=== PATIENT | male | born 1955 | race Caucasian/White ===

== ENCOUNTER 2017-02-16 15:19 | Emergency (ER) | payer BC ==
[2017-02-16] MEDS ORDERED: IBUPROFEN 800 MG TABLET PO STA (17:57)
[2017-02-16 18:07] LABS: BILIRUBIN,URINE NEGATIVE (NEGATIVE); CLARITY,URINE CLEAR (CLEAR); GLUCOSE, URINE (UA) NEGATIVE (NEGATIVE); KETONES,URINE (UA) 15 mg/dL (NEGATIVE); LEUKOCYTE ESTERASE, URINE NEGATIVE (NEGATIVE); NITRITE,URINE NEGATIVE (NEGATIVE); OCCULT BLOOD,URINE NEGATIVE (NEGATIVE); PROTEIN,URINE NEGATIVE (NEGATIVE); UROBILINOGEN,URINE 0.2 (NORMAL) E.U./dL (NORMAL)
[2017-02-16 18:21] LABS: BASOPHILS % (AUTO) 0.7 %; EOSINOPHILS # (AUTO) 0.1 10^3/uL (0.0-0.7); EOSINOPHILS % (AUTO) 1.3 %; HGB - HEMOGLOBIN 14.8 g/dL (14.0-18.0); LYMPHOCYTES # (AUTO) 0.8 10^3/uL (1.5-3.5); LYMPHOCYTES % (AUTO) 12.9 %; MEAN CORPUSCULAR HEMOGLOBIN 33.1 pg (27.0-31.0); MEAN CORPUSCULAR HGB CONC 34.4 g/dL (32.0-36.0); MEAN CORPUSCULAR VOLUME 96.1 fL (80.0-94.0); MEAN PLATELET VOLUME 8.1 fL (7.4-11.4); MONOCYTES # (AUTO) 0.7 10^3/uL (0.0-1.0); MONOCYTES % (AUTO) 12.2 %; NEUTROPHILS # (AUTO) 4.3 10^3/uL (1.5-6.6); NEUTROPHILS % (AUTO) 72.9 %; PLT - PLATELET COUNT 197 10^3/uL (130-450); RED BLOOD COUNT 4.47 10^6/uL (4.70-6.10); RED CELL DISTRIBUTION WIDTH 12.6 % (12.0-15.0); WHITE BLOOD COUNT 5.8 x10^3/uL (4.8-10.8)
--- NOTE | 2017-02-16 19:29 | ED Physician Documentation ---
History of Present Illness - Stated complaint Stated Complaint: FEVER/CHILLS/ABD CRAMPING - Chief complaint Chief Complaint: Fever - History obtained from History obtained from: Patient, Family (spouse) - History of Present Illness Timing: Today - Additonal information Additional information: The patient is a 61-year-old male who reports having an episode of shaking chills and muscular cramps this morning about 5 hours prior to arrival. He has felt fatigued since yesterday, with mild cough and congestion. He denies headache, sore throat, chest pain, abdominal pain, nausea, vomiting, or dysuria. When experiencing the symptoms this morning he noticed he was breathing heavily, "like panic breathing," and noticed spasms in his hands. He reports history of similar symptoms in the past when he had a bladder infection about 2 years ago. He has a history of chronic prostatitis. Review of Systems Constitutional: reports: Fever, Chills, Fatigue Eyes: denies: Irritation Ears: denies: Tinnitus/ringing Nose: reports: Congestion Throat: denies: Sore throat Cardiac: denies: Chest pain / pressure, Palpitations Respiratory: reports: Cough. denies: Dyspnea GI: denies: Abdominal Pain, Nausea, Vomiting : denies: Dysuria Skin: denies: Rash Musculoskeletal: denies: Back pain, Extremity swelling Neurologic: denies: Focal weakness, Numbness, Headache PD PAST MEDICAL HISTORY - Past Medical History Past Medical History: Yes Cardiovascular: None Respiratory: None Neuro: None Endocrine/Autoimmune: None GI: None : Other (Chronic prostatitis.) HEENT: None Psych: None Musculoskeletal: None Derm: None - Past Surgical History Past Surgical History: Yes - Allergies Allergies/Adverse Reactions: Allergies Allergy/AdvReac Type Severity Reaction Status Date / Time [place] And Derivatives Allergy Mild Hives Verified 02/16/17 18:27 - Social History Does the pt smoke?: No Smoking Status: Never smoker Does the pt drink ETOH?: Yes ETOH Use: Beer Does the pt have substance abuse?: No - Immunizations Immunizations are current?: Yes PD ED PE NORMAL - Vitals Vital signs reviewed: Yes (Hypertensive.) - General General: Alert and oriented X 3, Well developed/nourished - HEENT HEENT: Atraumatic, EOMI, Ears normal, Moist mucous membranes, Pharynx benign - Neck Neck: Supple, no meningeal sign, No adenopathy, No JVD - Cardiac Cardiac: RRR, No murmur - Respiratory Respiratory: No respiratory distress, Clear bilaterally - Abdomen Abdomen: Soft, Non tender, No organomegaly - Back Back: No CVA TTP, No spinal TTP - Derm Derm: No rash - Extremities Extremities: No tenderness to palpate, No edema, No calf tenderness / cord - Neuro Neuro: Alert and oriented X 3, No motor deficit, No sensory deficit Results - Vitals Vitals: Oxygen O2 Source Room air - Labs Labs: Laboratory Tests 02/16/17 02/16/17 02/16/17 15:37 17:20 18:15 WBC 5.8 RBC 4.47 L Hgb 14.8 Hct 43.0 MCV 96.1 H MCH 33.1 H MCHC 34.4 RDW 12.6 Plt Count 197 MPV 8.1 Neut # 4.3 Lymph # 0.8 L [place] # 0.7 Eos # 0.1 Baso # 0.0 Absolute Nucleated RBC 0.01 Nucleated RBC % 0.2 ESR C-Reactive Protein Urine Color LIGHT YELLOW Urine Clarity CLEAR Urine pH 6.0 Ur Specific [place] <=1.005 Urine Protein NEGATIVE Urine Glucose (UA) NEGATIVE Urine Ketones 15 H Urine Occult Blood NEGATIVE Urine Nitrite NEGATIVE Urine Bilirubin NEGATIVE Urine Urobilinogen 0.2 (NORMAL) Ur Leukocyte Esterase NEGATIVE Ur Microscopic Review NOT INDICATED Urine Culture Comments NOT INDICATED Influenza A (Rapid) Negative Influenza B (Rapid) Negative Influenza Types A,B Ag - 02/16/17 02/16/17 18:15 18:15 WBC RBC Hgb Hct MCV MCH MCHC RDW Plt Count MPV Neut # Lymph # [place] # Eos # Baso # Absolute Nucleated RBC Nucleated RBC % ESR 5 C-Reactive Protein < 1.0 Urine Color Urine Clarity Urine pH Ur Specific [place] Urine Protein Urine Glucose (UA) Urine Ketones Urine Occult Blood Urine Nitrite Urine Bilirubin Urine Urobilinogen Ur Leukocyte Esterase Ur Microscopic Review Urine Culture Comments Influenza A (Rapid) Influenza B (Rapid) Influenza Types A,B Ag PD MEDICAL DECISION MAKING - ED course Complexity details: reviewed results, re-evaluated patient, considered differential, d/w patient, d/w family ED course: The patient's presentation is most consistent with acute viral syndrome. His description of intense shivering raises suspicion for bacteremia. CBC is normal with a white count of 5.8. Influenza swab is negative. Urinalysis is negative. His presentation and exam did not suggest pneumonia. C-reactive protein and sedimentation rate are both normal, making endocarditis unlikely. I discussed with the patient and his the results of the workup symptomatic treatment and outpatient follow-up, as well as potentially worrisome signs or symptoms that should prompt reevaluation in the emergency department. Departure - Departure Disposition: 01 Home, Self Care Clinical Impression: Viral syndrome Condition: Stable Instructions: ED Viral Syndrome Follow-Up: Mikayla Velásquez RN, MSN, RNC [Registered Nurse] - Comments: Drink plenty of fluids. Use Tylenol or ibuprofen if needed for fever or discomfort. Follow up with your primary physician within 1-2 weeks. Call to schedule appointment. Return to the emergency department if you develop recurrent shaking chills, increasing shortness of breath, abdominal pain, or otherwise worsening symptoms. Discharge Date/Time: 02/16/17 19:44
[2017-02-16 19:41] VITALS: BP 139/77
== END 2017-02-16 19:44 | disposition home or self-care (01) ==
LOC: ED 15:19
DX: B34.9 Viral infection, unspecified (principal)
CPT/HCPCS: 36415; 81003; 85025; 85651; 86140; 87275; 87276; 99283; A9270; 81001; 87086

== ENCOUNTER 2019-11-03 08:00 | Outpatient (CLI) | payer BC | END 2019-11-03 23:59 | disposition home or self-care (01) | LOC: LAB.R 08:00 | PROVIDERS: ATTEND Physician Assistant | DX: R19.7 Diarrhea, unspecified (principal) | CPT/HCPCS: 81599; 87177; 87209; 87506 ==